=== PATIENT | female | born 1985 | race Caucasian/White ===

== ENCOUNTER 2022-11-06 18:33 | Emergency (ER) | payer MEDICARE, MEDICAID, SELFPAY ==
[2022-11-06 18:41] VITALS: BP 147/89; PULSE 92; RESP 18; TEMP 37.2; O2SAT 97; BMI 46.1
--- NOTE | 2022-11-06 19:01 | ED.ABDPAIN1 ---
HPI - Abdominal Pain General Chief Complaint: Abdominal Pain Stated Complaint: CRAMPING Time Seen by Provider: 11/06/22 18:43 Source: patient Mode of arrival: walk-in History of Present Illness HPI narrative: Patient is a 37-year-old female who presents to the emergency department for the evaluation of bilateral pelvic cramping for the last several days. She states about one year ago she had similar symptoms and was treated for Trichomonas. She states she had unprotected sex over the weekend and was concern for possible STD exposure as she is having pelvic pain, white/green discharge. She denies fevers, vomiting. She reports some discomfort with urination. She states her partner would not tell her if he has had any symptoms. She has not noticed any lesions or rashes. No medications prior to arrival. She is not concerned for . Related Data Previous Rx's Medication Instructions Recorded doxycycline hyclate 100 mg capsule 100 mg PO BID 7 days #14 caps 11/06/22 ketorolac 10 mg tablet 10 mg PO Q8H PRN pain #10 tabs 11/06/22 ondansetron 4 mg disintegrating 4 mg PO Q6H PRN nausea and 11/06/22 tablet vomiting #12 tabs Allergies Allergy/AdvReac Type Severity Reaction Status Date / Time azithromycin [From Zithromax] Allergy Severe Verified 11/06/22 18:40 Review of Systems ROS Constitutional Denies: fever or chills Respiratory Denies: cough Gastrointestinal Denies: nausea or vomiting Genitourinary Reports: painful urination and pelvic pain Musculoskeletal Denies: back pain Integumentary/Breast Denies: rash Exam Narrative Exam Narrative: Gen.: Awake, alert, in no distress Head: Normocephalic, atraumatic ENT: Moist mucous membranes Respiratory: No respiratory distress Gastrointestinal: Abdomen is soft, nondistended and nontender to palpation Pelvic: Normal external exam with no lesions or rashes noted. Speculum exam with yellow discharge noted from the cervix, no active bleeding. Bimanual exam with no adnexal tenderness, mild uterine tenderness, no distention or masses. Patient examined with Pat Hartley RN at bedside throughout the duration of the exam Extremities: Moves extremities equally, no injuries noted Psych: Normal mood and affect Neuro: No focal neuro deficit Skin: Warm, dry, intact Constitutional Vital Signs - 24 hr 11/06/22 18:41 11/06/22 18:50 Temperature 99.0 F Pulse Rate [Monitor] 92 H Respiratory Rate 18 Blood Pressure [Right Arm] 147/89 H Pulse Oximetry 97 Oxygen Delivery Method Room Air Room Air Course Vital Signs Vital signs: Vital Signs Temperature 99.0 F 11/06/22 18:41 Pulse Rate 92 H 11/06/22 18:41 Respiratory Rate 18 11/06/22 18:41 Blood Pressure 147/89 H 11/06/22 18:41 Pulse Oximetry 97 11/06/22 18:41 Oxygen Delivery Method Room Air 11/06/22 18:41 Temperature 99.0 F 11/06/22 18:41 Pulse Rate 92 H 11/06/22 18:41 Respiratory Rate 18 11/06/22 18:41 Blood Pressure 147/89 H 11/06/22 18:41 Pulse Oximetry 97 11/06/22 18:41 Oxygen Delivery Method Room Air 11/06/22 18:50 MDM - Abdominal Pain MDM Narrative Medical decision making narrative: Pelvic exam was performed and pelvic cultures were obtained, GC/ chlamydia cultures are pending and we will contact with positive results. Patient is treated empirically with Rocephin in the Emergency Room and doxycycline for home. She is treated for cervicitis, no evidence of pain out of proportion on exam or abnormal vital signs. Follow-up with PAYLOADER MACHINE OPERATOR and return to the Emergency Room symptoms change or worsen. Doxycycline, Toradol, Zofran given for home. Medical Records Attestation: I reviewed the patient's medical records. Lab Data Attestation: I reviewed the patient's lab results. Labs: Lab Results 11/06/22 11/06/22 Range/Units 18:55 19:07 Urine Color Lt. yellow (YELLOW) Urine Clarity Clear (CLEAR) Urine pH 7.0 (5.0-9.0) Ur Specific [place] <=1.005 A (1.005-1.025) Urine Protein Trace (NEG/TRACE) mg/dL Urine Glucose (UA) Negative (NEGATIVE) mg/dL Urine Ketones Negative (NEGATIVE) mg/dL Urine Occult Blood Large A (NEGATIVE) Urine Nitrite Negative (NEGATIVE) Urine Bilirubin Negative (NEGATIVE) Urine Urobilinogen 0.2 (0.2-1.0) EU/dL Ur Leukocyte Esterase Large A (NEGATIVE) Urine RBC 10-20 A (0-2) #/HPF Urine WBC 20-50 A (NONE SEEN) #/HPF Ur Squamous Epith Cells Many A (NONE/RARE) #/LPF Urine Crystals None seen (None Seen) #/HPF Urine Bacteria Large A (NONE SEEN) #/HPF Urine Casts None seen (NONE SEEN) #/LPF Urine Mucus Moderate A (NONE SEEN) Ur Culture Indicated? Yes Urine HCG, Qual Negative (NEGATIVE) C.trachomatis DNA (SALVADOR) Negative (Negative) N.gonorrhoeae DNA (SALVADOR) Negative (Negative) Discharge Plan Discharge Chief Complaint: Abdominal Pain Clinical Impression: Pelvic pain, Cervicitis Patient Disposition: Home, Self-Care Time of Disposition Decision: 19:32 Condition: Good Mode of Transportation: Private Vehicle Prescriptions / Home Meds: New doxycycline hyclate 100 mg capsule 100 mg PO BID 7 Days Qty: 14 0RF ondansetron 4 mg tablet,disintegrating 4 mg PO Q6H PRN (Reason: nausea and vomiting) Qty: 12 0RF ketorolac 10 mg tablet 10 mg PO Q8H PRN (Reason: pain) Qty: 10 0RF Instructions: Cervicitis (ED) Stand Alone Forms: Portal Instructions Referrals: [facility] [Primary Care Provider] - 1 week (Your PAYLOADER MACHINE OPERATOR) Discharge Date/Time: 11/06/22 19:55
[2022-11-06 19:05] LABS: Bilirubin Urine NEGATIVE (NEGATIVE); Blood Urine LARGE (NEGATIVE); Clarity Urine CLEAR (CLEAR); Color Urine LT. YELLOW (YELLOW); Glucose Urine UA NEGATIVE (NEGATIVE); Ketones Urine NEGATIVE (NEGATIVE); Leukocyte Esterase Urine LARGE (NEGATIVE); Nitrite Urine NEGATIVE (NEGATIVE); Protein Urine TRACE mg/dL (NEG/TRACE); Specific Gravity Urine <=1.005 (1.005-1.025); Urobilinogen Urine 0.2 EU/dL (0.2-1.0)
[2022-11-06 19:07] LABS: HCG Qualitative Urine* NEGATIVE (NEGATIVE); Urine Microscopic Indicated YES
[2022-11-06 19:15] LABS: Bacteria Urine LARGE #/HPF (NONE SEEN); WBC Urine 20-50 #/HPF (NONE SEEN)
[2022-11-06 19:16] LABS: Cast Seen? NONE SEEN #/LPF (NONE SEEN); Crystals Seen? None Seen #/HPF (None Seen); Mucus Urine MODERATE (NONE SEEN); Squamous Epithelial Cell Urine MANY #/LPF (NONE/RARE); Urine Culture Indicated YES
[2022-11-06] MEDS: CEFTRIAXONE 500 MG VIAL IM (19:51)
[2022-11-09 21:10] LABS: Neisseria gonorrhoeae, NAA Negative (Negative)
== END 2022-11-06 19:55 | disposition home or self-care (01) ==
PROVIDERS: Physician Assistant; Emergency Provider Emergency Medicine
DX: N72 Inflammatory disease of cervix uteri (principal); R10.2 Pelvic and perineal pain
CPT/HCPCS: 81003; 81015; 84703; 87086; 87210; 87491; 87591; 96372; 99284

== ENCOUNTER 2023-02-25 17:28 | Emergency (ER) | payer MEDICARE, MEDICAID, SELFPAY ==
[2023-02-25 17:32] VITALS: BP 120/68; PULSE 88; RESP 18; TEMP 36.9; O2SAT 98; BMI 47.2
--- NOTE | 2023-02-25 17:54 | ED.FEMALEGU1 ---
HPI - Female Genitourinary General Chief complaint: Urogenital-Female Stated complaint: lower abd pain Time Seen by Provider: 02/25/23 17:30 Source: patient Mode of arrival: walk-in Limitations: no limitations History of Present Illness HPI Narrative: patient is a 37-year-old female presents to the Emergency Room with concerns of sexually transmitted disease. Patient reports that her partner and her had unprotected sex and that he has been unfaithful in the past. She reports some vaginal discharge and drainage, her most recent STD was Trichomonas which was treated. She is unsure of whether or not her partner got treated. Patient notes urinary urgency and frequency denies discomfort with urination. Slight dyspareunia. Patient attempted to call her IT INFRASTRUCTURE PROJECT MANAGER but cannot get seen for another week. She's had symptoms for the past few days. Patient denies fevers or chills. She denies chance of and appears in no distress MD elicited complaint: Reports vaginal discharge Pertinent past history: Reports STI/STD Location of symptoms: Reports vaginal Vaginal discharge: Reports white and purulent Vaginal bleeding: Reports none Urinary symptoms: Reports Urgency and Frequency Exacerbating factors: Reports none Relieving factors: Reports none Treatment prior to arrival: Reports none Sexual activity: Reports Yes Related Data Previous Rx's Medication Instructions Recorded doxycycline hyclate 100 mg capsule 100 mg PO BID 7 days #14 caps 02/25/23 Allergies Allergy/AdvReac Type Severity Reaction Status Date / Time azithromycin [From Zithromax] Allergy Severe Verified 02/25/23 17:32 Review of Systems ROS Constitutional Denies: fever or chills Ears, nose, mouth, and throat Denies: throat pain Cardiovascular Denies: chest pain or palpitations Respiratory Denies: shortness of breath or cough Gastrointestinal Reports: other; Denies: abdominal pain or nausea Genitourinary Reports: urinary frequency, urinary urgency, vaginal discharge and pain during intercourse; Denies: painful urination Musculoskeletal Denies: back pain, neck pain or extremity pain Integumentary/Breast Denies: rash, itching, redness or skin tenderness Neurological Denies: headache or numbness in extremities Psychiatric Denies: anxiety or mood swings Exam Narrative Exam Narrative: Nurses note and vital signs reviewed and patient is not hypoxic. General: The patient appears well and in no apparent distress. Patient is resting comfortably on cart. Skin: Warm, dry, no pallor noted. There is no rash noted. Head: Normocephalic, atraumatic Eye: Normal conjunctiva Ears, Nose, Mouth, and Throat: oral mucosa is moist Cardiovascular: Regular Rate and Rhythm Respiratory: Patient is in no distress, no accessory muscle use, lungs are clear to auscultation, no wheezing, rales or rhonchi Back: non-tender, no CVA tenderness bilaterally to percussion. GI: Normal bowel sounds, no tenderness to palpation, no masses appreciated. No rebound, guarding, or rigidity noted. : Pelvic exam was completed with nursing staff ( IGOR) at bedside for entire duration of the exam. Speculum exam showed normal external genitalia, there was evidence of white/to purulent discharge in vaginal vault. There was no evidence of blood noted in the vaginal vault. Patient's os was closed. Bimanual exam showed + cervical motion tenderness, no adnexal tenderness, no masses were appreciated. Os is closed.no external skin lesions. Cervical os appeared noninflamed Musculoskeletal: The patient has no evidence of calf tenderness, no pitting edema, symmetrical pulses noted bilaterally Neurological: A&O x4, normal speech Psychiatric: Cooperative. Constitutional Vital Signs, click to edit/add: Last Vital Signs Temp 98.4 F 02/25/23 17:32 Pulse 88 02/25/23 17:32 Resp 18 02/25/23 17:32 BP 120/68 02/25/23 17:32 Pulse Ox 98 02/25/23 17:32 O2 Del Method Room Air 02/25/23 17:32 Course Vital Signs Vital signs: Vital Signs Temperature 98.4 F 02/25/23 17:32 Pulse Rate 88 02/25/23 17:32 Respiratory Rate 18 02/25/23 17:32 Blood Pressure 120/68 02/25/23 17:32 Pulse Oximetry 98 02/25/23 17:32 Oxygen Delivery Method Room Air 02/25/23 17:32 Temperature 98.4 F 02/25/23 17:32 Pulse Rate 88 02/25/23 17:32 Respiratory Rate 18 02/25/23 17:32 Blood Pressure 120/68 02/25/23 17:32 Pulse Oximetry 98 02/25/23 17:32 Oxygen Delivery Method Room Air 02/25/23 17:32 MDM - Female Genitourinary MDM Narrative Medical decision making narrative: patient presents with concern of possible STD, noticing vaginal discharge and drainage, some dyspareunia urinary urgency and frequency. We discussed more full evaluation for sexual transmitted disease throuugh the health Department. Patient states she had blood testing not long ago as well. We discussed hepatitis and HIV in particular. Patient notes her last STD was Trichomonas. She is unsure if her partner was treated. She reports very similar symptoms with vaginal drainage. Patient agreeable to swabs and culture today, wet prep and urinalysis. Given her sexual history recommend abstinence pending culture results and treated prophylactically with Rocephin 250 mg IM, Flagyl 2 g by mouth once, and prescription to go for doxycycline for seven days. Patient encouraged to practice safe sexual practices to limit transmissioon of STDs and follow-up with her IT INFRASTRUCTURE PROJECT MANAGER for reevaluation. Risks and benefits of prophylactic and buttocks discussed. positive clue cells on wet prep discussed with pt. The patient is to followup with primary care physician/ OBGYN in next 2-3 days or to return to the emergency department should any of the signs or symptoms worsen or new symptoms develop. Patient had questions answered. The patient agrees with the following Diagnosis and Treatment plan and the patient will be discharged home. Lab Data Attestation: I reviewed the patient's lab results. Labs: Lab Results 02/25/23 02/25/23 Range/Units 17:59 18:00 Urine Color Lt. yellow (YELLOW) Urine Clarity Clear (CLEAR) Urine pH 6.0 (5.0-9.0) Ur Specific [place] 1.025 (1.005-1.025) Urine Protein Negative (NEG/TRACE) mg/dL Urine Glucose (UA) Negative (NEGATIVE) mg/dL Urine Ketones Negative (NEGATIVE) mg/dL Urine Occult Blood Negative (NEGATIVE) Urine Nitrite Negative (NEGATIVE) Urine Bilirubin Negative (NEGATIVE) Urine Urobilinogen 0.2 (0.2-1.0) EU/dL Ur Leukocyte Esterase Negative (NEGATIVE) Urine HCG, Qual Negative (NEGATIVE) C.trachomatis DNA (S[place]OR) Negative (Negative) N.gonorrhoeae DNA (SALVADOR) Negative (Negative) Discharge Plan Discharge Chief Complaint: Urogenital-Female Clinical Impression: Vaginal discharge, Bacterial vaginosis Patient Disposition: Home, Self-Care Time of Disposition Decision: 18:01 Condition: Good Prescriptions / Home Meds: New doxycycline hyclate 100 mg capsule 100 mg PO BID 7 Days Qty: 14 0RF Instructions: Bacterial Vaginosis (ED), Vaginal Discharge (ED) Stand Alone Forms: Portal Instructions Referrals: Anderson Craig DO [Physician] - 1 week [facility] [Primary Care Provider] - 1 week Discharge Date/Time: 02/25/23 19:04
[2023-02-25 18:03] LABS: Bilirubin Urine NEGATIVE (NEGATIVE); Blood Urine NEGATIVE (NEGATIVE); Clarity Urine CLEAR (CLEAR); Color Urine LT. YELLOW (YELLOW); Glucose Urine UA NEGATIVE (NEGATIVE); Ketones Urine NEGATIVE (NEGATIVE); Leukocyte Esterase Urine NEGATIVE (NEGATIVE); Nitrite Urine NEGATIVE (NEGATIVE); Protein Urine NEGATIVE (NEG/TRACE); Specific Gravity Urine 1.025 (1.005-1.025); Urobilinogen Urine 0.2 EU/dL (0.2-1.0)
[2023-02-25 18:36] LABS: Urine Microscopic Indicated NO
[2023-02-25 18:40] LABS: HCG Qualitative Urine* NEGATIVE (NEGATIVE)
[2023-02-25] MEDS: CEFTRIAXONE 250 MG, WATER FOR INJECTION,STERILE 0.9 ML IM (18:48)
[2023-02-25] MEDS: METRONIDAZOLE 250 MG TABLET 2000 MG PO (18:48)
[2023-02-25] MEDS: DOXYCYCLINE MONOHYDRATE 100 MG CAPSULE PO (18:48)
[2023-02-28 07:08] LABS: Neisseria gonorrhoeae, NAA Negative (Negative)
== END 2023-02-25 19:04 | disposition home or self-care (01) ==
PROVIDERS: Personal Emergency Response Attendant; Emergency Provider Emergency Medicine
DX: N76.0 Acute vaginitis (principal); Z20.2 Contact with and (suspected) exposure to infections with a predominantly sexual mode of transmission
CPT/HCPCS: 81003; 84703; 87070; 87210; 87491; 87591; 96372; 99285

== ENCOUNTER 2023-08-25 21:11 | Emergency (ER) | payer MEDICARE, MEDICAID, SELFPAY ==
[2023-08-25 21:18] VITALS: BP 137/90; PULSE 95; TEMP 36.7; O2SAT 96; BMI 48.5
--- NOTE | 2023-08-25 21:43 | ED_ITS ---
HPI HPI - General Adult General Chief complaint: Abdominal Pain Stated complaint: 8 Weeks Time Seen by Provider: 08/25/23 21:34 Source: patient Mode of arrival: walk-in Limitations: no limitations History of Present Illness HPI narrative: . one stillborn. States LMP 07/14. Has not felt well for a week. Feels like she can't take a full breath. Not short of breath. Able to perform her normal activities and is not short of breath but demonstrates when she takes a full breath it doesn't feel complete. RA pulse ox 96%. She is in no distress. No chest pain. States she decided to come in because the sensation continued. Related Data Home Medications ?Medication ?Instructions ?Recorded ?Confirmed amitriptyline 50 mg tablet mg 08/25/23 atorvastatin 10 mg tablet mg 08/25/23 buspirone 10 mg tablet mg 08/25/23 clonidine HCl 0.1 mg tablet mg 08/25/23 escitalopram oxalate 20 mg tablet mg 08/25/23 esomeprazole magnesium 40 mg mg 08/25/23 capsule,delayed release metformin 500 mg tablet mg 08/25/23 olanzapine 10 mg tablet mg 08/25/23 trazodone 50 mg tablet mg 08/25/23 valacyclovir 500 mg tablet mg 08/25/23 ziprasidone HCl 40 mg capsule mg PO 08/25/23 Allergies Allergy/AdvReac Type Severity Reaction Status Date / Time azithromycin [From Zithromax] Allergy Severe Verified 08/25/23 21:22 Opioid HPI Opioid Management Most Recent Opioid Data: No Data to Display Review of Systems ROS Status of ROS 10 or more systems reviewed and unremark able except as noted in history and below Exam Constitutional Vital Signs, click to edit/add: Last Vital Signs Temp 98.1 F 08/25/23 21:18 Pulse 95 H 08/25/23 21:18 Resp 18 08/25/23 21:18 BP 137/90 08/25/23 21:18 Pulse Ox 96 08/25/23 21:18 O2 Del Method Room Air 08/25/23 21:18 Common normals: no apparent distress, average body habitus, oriented x3, no limitations, healthy appearing, alert and well nourished [facility] Common normals: normocephalic and head/scalp atraumatic Respiratory Common normals: normal respiratory effort, no retractions, no use of accessory muscles and clear to auscultation bilaterally Cardio Common normals: regular rate, regular rhythm, S1 normal heart sound and S2 normal heart sound GI Common normals: Normal to inspection, nondistended, normoactive bowel sounds present, soft to palpation and non-tender Extremity Common normals: normal to inspection and full ROM Neuro Common normals: oriented x3, CN's II-XII intact bilaterally, moves all extremities and no focal motor deficits Psych Appearance: grossly normal Course Vital Signs Vital signs: Vital Signs Temperature 98.1 F 08/25/23 21:18 Pulse Rate 95 H 08/25/23 21:18 Respiratory Rate 18 08/25/23 21:18 Blood Pressure 137/90 08/25/23 21:18 Pulse Oximetry 96 08/25/23 21:18 Oxygen Delivery Method Room Air 08/25/23 21:18 Temperature 98.1 F 08/25/23 21:18 Pulse Rate 95 H 08/25/23 21:18 Respiratory Rate 18 08/25/23 21:18 Blood Pressure 137/90 08/25/23 21:18 Pulse Oximetry 96 08/25/23 21:18 Oxygen Delivery Method Room Air 08/25/23 21:18 Medical Decision Making MDM Narrative Medical decision making narrative: patient presents with atypical complaint of a sensation of not able to take a full breath. Patient examined and orders placed. Nursing now is not able to locate the patient and they believe she left the department Discharge Plan Discharge Stand Alone Forms: Portal Instructions Chief Complaint: Abdominal Pain Clinical Impression: Shortness of breath Patient Disposition: Left Against Medical Advice Prescriptions / Home Meds: No Action metformin 500 mg tablet clonidine HCl 0.1 mg tablet trazodone 50 mg tablet atorvastatin 10 mg tablet olanzapine 10 mg tablet valacyclovir 500 mg tablet amitriptyline 50 mg tablet esomeprazole magnesium 40 mg capsule,delayed release(DR/EC) buspirone 10 mg tablet ziprasidone HCl 40 mg capsule PO escitalopram oxalate 20 mg tablet Print Language: Syriac Referrals: [facility] [Primary Care Provider] - 1 week Discharge Date/Time: 08/25/23 22:18
== END 2023-08-25 22:18 | disposition left against medical advice (07) ==
PROVIDERS: Emergency Provider Internal Medicine
DX: O26.891 Other specified pregnancy related conditions, first trimester (principal); R06.02 Shortness of breath; Z3A.08 8 weeks gestation of pregnancy; Z79.899 Other long term (current) drug therapy; Z79.84 Long term (current) use of oral hypoglycemic drugs
CPT/HCPCS: 80048; 84702; 99281